=== PATIENT | male | born 1965 | race Caucasian/White ===

== ENCOUNTER 2016-12-03 13:37 | Emergency (ER) | payer SELFPAY ==
[~2016-12-03] VITALS: Ht 177.8 cm; Wt 83.9 kg
[2016-12-03] MEDS ORDERED: PIPERACILLIN/TAZOBACTAM 4.5 GM in IV NORMAL SALINE 50ML 50 ML IV ONE (14:15)
[2016-12-03] MEDS ORDERED: MORPHINE SULFATE 4 MG/ML DISP.SYRIN. IV/SQ PRN (14:15)
[2016-12-03] MEDS ORDERED: VANCOMYCIN 2 GM in IV NORMAL SALINE 500ML 500 ML IV ONE (14:15)
[2016-12-03] MEDS ORDERED: PIP/TAZO PER PHARMACY MC PRN (14:15)
[2016-12-03] MEDS ORDERED: IV NORMAL SALINE 1,000ML 1,000 ML IV SCH (14:30)
[2016-12-03] MEDS ORDERED: fentaNYL PF 100 MCG/2 ML VIAL IV ONE (14:30)
[2016-12-03] MEDS ORDERED: VANCOMYCIN PER PHARMACY MC ONE (14:30)
[2016-12-03 14:31] LABS: BASO # 0.1 x10^3/uL (0.0-0.2); BASO % 1 % (0-3); EOS # 0.3 x10^3/uL (0.0-0.7); EOS % 3 % (0-3); HEMATOCRIT 45.5 % (39.0-53.0); HEMOGLOBIN 16.1 g/dL (13.0-17.5); LYMPH # 2.2 x10^3/uL (1.0-4.8); LYMPH % 20 % (24-48); MEAN CORPUSCULAR HEMOGLOBIN 33 pg (25-35); MEAN CORPUSCULAR HGB CONC 35 g/dL (31-37); MEAN CORPUSCULAR VOLUME 92 fL (79-100); MONO % 9 % (0-9); NEUT # 7.3 x10^3uL (1.8-7.7); NEUT % 67 % (31-73); PLATELET COUNT 191 x10^3/uL (140-400); RED BLOOD COUNT 4.94 x10^6/uL (4.30-5.70); RED CELL DISTRIBUTION WIDTH 13.6 % (11.5-14.5); WHITE BLOOD COUNT 10.8 x10^3/uL (4.0-11.0)
[2016-12-03] MEDS ORDERED: PIPERACILLIN/TAZOBACTAM 4.5 GM VIAL IV ONE (14:33)
[2016-12-03] MEDS ORDERED: IV NORMAL SALINE 50ML 50 ML ONE (14:33)
[2016-12-03 14:42] LABS: C REACTIVE PROTEIN 7.9 mg/L (0-3.3); CALCIUM 8.7 mg/dL (8.5-10.1); CREATININE 0.9 mg/dL (0.7-1.3); GFR 89.7; POTASSIUM 3.8 mmol/L (3.5-5.1)
--- NOTE | 2016-12-03 15:29 | PHYS DOC ---
General Chief Complaint: ABSCESS Stated Complaint: ABSCESS Time Seen by MD: 13:39 Source: patient Exam Limitations: no limitations Problems: History of Present Illness Initial Comments Patient is a 51-year-old male who comes to the ED complaining of testicular mass and pain. Patient states he's had a growth on the right side of his scrotum for the past 3 -5 years. He states it has become tender in the past however the past several days it has grown much larger and hurt so badly has altered the way he has to walk. He denies prior trauma no fever chills sweats or myalgias. He denies pain with intercourse no STI history. [id number] meds not helping patient has MRSA history and thinks this is probable recurrence. Patient has history of addiction and is a heavy smoker. Timing/Duration: getting worse, changing over time Severity: severe Modifying Factors: worse with movement, improves with rest Associated Symptoms: other Allergies: Coded Allergies: No Known Drug Allergies (Unverified , 12/03/16) Past Medical History Medical History: no pertinent history Surgical History: noncontributory Social History Smoker: cigarettes Alcohol: sober Drugs: none Review of Systems Constitutional: denies chills, denies fever, denies malaise Respiratory: denies cough, denies shortness of breath Cardiovascular: denies chest pain, denies palpitations Gastrointestinal: denies diarrhea, denies nausea, denies vomiting Genitourinary: see HPI Musculoskeletal: denies back pain, denies joint swelling, denies neck pain Skin: see HPI Psychiatric/Neurological: denies headache, denies numbness, denies paresthesia Physical Exam General Appearance: WD/WN, no apparent distress Eyes: bilateral eye normal inspection, bilateral eye PERRL, bilateral eye EOMI Ear, Nose, Throat: hearing grossly normal, normal ENT inspection (absent dentition) Neck: non-tender, supple Respiratory: normal breath sounds, no respiratory distress Cardiovascular: normal peripheral pulses, regular rate, rhythm Gastrointestinal: non tender, soft, other (normal circumcised male, there is a 2.5 cm tender hard erythematous nodule at the right lateral scrotum no skin breaks or discharge) Back: no CVA tenderness, no vertebral tenderness Extremities: non-tender, normal inspection Neurologic/Psychiatric: 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 Patient will have a prolonged ED course as scrotal ultrasound has not been completed and still needs to be interpreted. Patient was a prolonged ED course due to laboratory delay. PATIENT: MORIS SAMUEL ACCOUNT: [id number] : 1965 LOCATION: ER AGE: 51 SEX: M EXAM STATUS: REG ER ORD. PHYSICIAN: JUNO KOO DO REASON: tender mass R testicle PROCEDURE: TESTICULAR/SCROTUM Indication tenderness. Reported scrotal abscess. Grayscale color Doppler and spectral imaging was performed and targeted to the scrotum. The right testicle measures 5 x 2.4 x 3.2 cm. There is some suggested increased vascularity seen associated with the testicle. This is nonspecific but could represent a nonspecific inflammatory process. There is no right scrotal mass seen. The epididymis appears normal. There is a small hydrocele. The left testicle appears normal. There is some increased vascularity seen associated with the left testicle as well. The epididymis appears normal. There is a small hydrocele. In the perineum, outside the scrotal sac, is a hypoechoic mass with increased vascularity surrounding the mass measuring approximately 3 cm in greatest dimension. This could represent a hematoma or an abscess. IMPRESSION: No evidence of testicular mass. Small bilateral hydroceles. 3 cm soft tissue mass, in the perineum, outside the scrotum which may represent a hematoma or abscess. DICTATED AND SIGNED BY: DAVON PEÑA MD DATE: 12/03/16 1544 CC: PCP,NO; JUNO KOO DO ~ CRP 7.9 other labs unremarkable. I discussed findings with patient and need for urologic evaluation. He expressed agreement and understanding. Departure Time of Disposition: 16:28 Disposition: 01 HOME, SELF-CARE Diagnosis: uncertain behavior scrotal mass Condition: STABLE Patient Instructions: Scrotal Swelling Additional Instructions: Activity as tolerated. [id number] ibuprofen for baseline discomfort. Prescription: Doxycycline 100 mg, [place] 5 mg quantity 20 Take medications with food to avoid nausea vomiting. He will need to follow-up with a urologist. You may choose to follow-up with Dr. Shaun Jimenez [phone] call today to schedule next available appointment. Return to the ED with new or changing symptoms. JUNO KOO DO Dec 03, 2016 15:29
--- NOTE | 2016-12-03 15:57 | RAD ---
Indication tenderness. Reported scrotal abscess. Grayscale color Doppler and spectral imaging was performed and targeted to the scrotum. The right testicle measures 5 x 2.4 x 3.2 cm. There is some suggested increased vascularity seen associated with the testicle. This is nonspecific but could represent a nonspecific inflammatory process. There is no right scrotal mass seen. The epididymis appears normal. There is a small hydrocele. The left testicle appears normal. There is some increased vascularity seen associated with the left testicle as well. The epididymis appears normal. There is a small hydrocele. In the perineum, outside the scrotal sac, is a hypoechoic mass with increased vascularity surrounding the mass measuring approximately 3 cm in greatest dimension. This could represent a hematoma or an abscess. IMPRESSION: No evidence of testicular mass. Small bilateral hydroceles. 3 cm soft tissue mass, in the perineum, outside the scrotum which may represent a hematoma or abscess.
[2016-12-03 16:01] LABS: SEDIMENTATION RATE 9 (0-15)
[2016-12-03 16:55] VITALS: BP 130/81
[2016-12-03] MEDS ORDERED: methylPREDNISolone SOD SUCC PF 125 MG/2 ML VIAL. IV ONE (17:00)
[2016-12-03] MEDS ORDERED: diphenhydrAMINE 50 MG/ML VIAL IVP ONE (17:00)
== END 2016-12-03 17:12 | disposition home or self-care (01) ==
LOC: ER 13:37
DX: N50.89 Other specified disorders of the male genital organs (principal); F17.210 Nicotine dependence, cigarettes, uncomplicated; N43.3 Hydrocele, unspecified
CPT/HCPCS: 36415; 76870; 80048; 83605; 85027; 85651; 86140; 87040; 96365; 96366; 96367; 96375; 99285; J1200; J2543; J2930; J3010; J3370; J7040; 96361; J7030

== ENCOUNTER 2017-03-03 17:43 | Emergency (ER) | payer SELFPAY ==
[~2017-03-03] VITALS: Ht 177.8 cm; Wt 69.4 kg
[2017-03-03 17:43] VITALS: BP 125/93
[2017-03-03 18:54] LABS: BASO # 0.1 x10^3/uL (0.0-0.2); BASO % 1 % (0-3); EOS # 0.3 x10^3/uL (0.0-0.7); EOS % 3 % (0-3); HEMATOCRIT 45.7 % (39.0-53.0); HEMOGLOBIN 15.5 g/dL (13.0-17.5); LYMPH # 2.7 x10^3/uL (1.0-4.8); LYMPH % 27 % (24-48); MEAN CORPUSCULAR HEMOGLOBIN 32 pg (25-35); MEAN CORPUSCULAR HGB CONC 34 g/dL (31-37); MEAN CORPUSCULAR VOLUME 95 fL (79-100); MONO % 10 % (0-9); NEUT % 60 % (31-73); PLATELET COUNT 194 x10^3/uL (140-400); RED BLOOD COUNT 4.79 x10^6/uL (4.30-5.70); RED CELL DISTRIBUTION WIDTH 13.3 % (11.5-14.5)
[2017-03-03] MEDS ORDERED: IV NORMAL SALINE 1,000ML 1,000 ML IV ONE (19:00)
[2017-03-03 19:06] LABS: ALBUMIN 3.4 g/dL (3.4-5.0); CALCIUM 8.9 mg/dL (8.5-10.1); CREATININE 0.9 mg/dL (0.7-1.3); GFR 89.7; MAGNESIUM 2.2 mg/dL (1.8-2.4); POTASSIUM 4.1 mmol/L (3.5-5.1); TOTAL BILIRUBIN 0.2 mg/dL (0.2-1.0); TOTAL PROTEIN 6.8 g/dL (6.4-8.2)
[2017-03-03 19:14] LABS: AMPHETAMINE/METHAMPHETAMINE NEG (NEG); BARBITURATES NEG (NEG); BENZODIAZEPINES NEG (NEG); CANNABINOIDS NEG (NEG); COCAINE NEG (NEG); METHADONE NEG (NEG); OPIATES NEG (NEG); PHENCYCLIDINE NEG (NEG)
--- NOTE | 2017-03-03 19:19 | ED.ADGEN ---
Past History Past Medical History: Asthma Past Surgical History: Other Alcohol Use: Occasionally Drug Use: None Adult General Chief Complaint Chief Complaint ".. I think I got dehydrated.. my urine is dark.. I just feel washed out..." HPI HPI Patient is a 51 year old male who presents with above hx and complaints. Pt. reports working at [employer], he sweats lot. Reportedly while at the [employer] this week end he was just " washed out". Pt. reports dark urine and feeling dehydrated. Pt. chest pain, fever, chills, or any ill contacts. No history of travel. Patient does smoke. Patient does not follow-up primary care. Review of Systems Review of Systems Constitutional: Denies fever or chills [] Eyes: Denies change in visual acuity, redness, or eye pain [] HENT: Denies nasal congestion or sore throat [] Respiratory: Denies cough or shortness of breath [] Cardiovascular: No additional information not addressed in HPI [] GI: Denies abdominal pain, nausea, vomiting, bloody stools or diarrhea [] : Denies dysuria or hematuria [] Musculoskeletal: Denies back pain or joint pain [] Pt. complains of weakness Integument: Denies rash or skin lesions [] Neurologic: Denies headache, focal weakness or sensory changes [] Endocrine: Denies polyuria or polydipsia [] Family History Family History Noncontributory Current Medications Current Medications Current Medications Medications (Trade) Dose Ordered Sig/Silvia Start Time Stop Time Status Last Admin Dose Admin Sodium Chloride 1,000 ml @ 1,000 mls/hr 1X ONCE 03/03/17 19:00 03/03/17 19:59 03/03/17 18:50 1,000 MLS/HR Allergies Allergies Allergies Coded Allergies Type Severity Reaction Last Updated Verified vancomycin Allergy Intermediate Rash 03/03/17 Yes Physical Exam Physical Exam Constitutional: Patient appears well nourished, no acute distress, non-toxic appearance. [] HENT: Normocephalic, atraumatic, bilateral external ears normal, oropharynx moist, no oral exudates, nose normal. No teeth. Eyes: PERRLA, EOMI, conjunctiva normal, no discharge. [] Neck: Normal range of motion, no tenderness, supple, no stridor. [] Cardiovascular:Heart rate regular rhythm, no murmur [] Lungs & Thorax: Bilateral breath sounds equal at apex with scattered wheezes to auscultation [] Abdomen: Bowel sounds normal, soft, no tenderness, no masses, no pulsatile masses. [] Skin: Warm, dry, no erythema, no rash. [] Back: No tenderness, no CVA tenderness. [] Extremities: No tenderness, no cyanosis, no clubbing, ROM intact, no edema. [] Neurologic: Alert and oriented X 3, normal motor function, normal sensory function, no focal deficits noted. [] Psychologic: Affect normal, judgement normal, mood normal. [] Current Patient Data Vital Signs Vital Signs Date Time Temp Pulse Resp B/P (MAP) Pulse Ox O2 Delivery O2 Flow Rate FiO2 03/03/17 17:43 97.5 52 18 99 Room Air Lab Results Laboratory Tests Test 03/03/17 18:25 03/03/17 18:45 White Blood Count 10.0 x10^3/uL (4.0-11.0) Red Blood Count 4.79 x10^6/uL (4.30-5.70) Hemoglobin 15.5 g/dL (13.0-17.5) Hematocrit 45.7 % (39.0-53.0) Mean Corpuscular Volume 95 fL (79-100) Mean Corpuscular Hemoglobin 32 pg (25-35) Mean Corpuscular Hemoglobin Concent 34 g/dL (31-37) Red Cell Distribution Width 13.3 % (11.5-14.5) Platelet Count 194 x10^3/uL (140-400) Neutrophils (%) (Auto) 60 % (31-73) Lymphocytes (%) (Auto) 27 % (24-48) Monocytes (%) (Auto) 10 % (0-9) H Eosinophils (%) (Auto) 3 % (0-3) Basophils (%) (Auto) 1 % (0-3) Neutrophils # (Auto) 6.0 x10^3uL (1.8-7.7) Lymphocytes # (Auto) 2.7 x10^3/uL (1.0-4.8) Monocytes # (Auto) 1.0 x10^3/uL (0.0-1.1) Eosinophils # (Auto) 0.3 x10^3/uL (0.0-0.7) Basophils # (Auto) 0.1 x10^3/uL (0.0-0.2) Sodium Level 142 mmol/L (136-145) Potassium Level 4.1 mmol/L (3.5-5.1) Chloride Level 107 mmol/L (98-107) Carbon Dioxide Level 29 mmol/L (21-32) Anion Gap 6 (6-14) Blood Urea Nitrogen 17 mg/dL (8-26) Creatinine 0.9 mg/dL (0.7-1.3) Estimated GFR (Cockcroft-Gault) 89.7 BUN/Creatinine Ratio 19 (6-20) Glucose Level 94 mg/dL (70-99) Calcium Level 8.9 mg/dL (8.5-10.1) Magnesium Level 2.2 mg/dL (1.8-2.4) Total Bilirubin 0.2 mg/dL (0.2-1.0) Aspartate Amino Transferase (AST) 15 U/L (15-37) Alanine Aminotransferase (ALT) 18 U/L (16-63) Alkaline Phosphatase 69 U/L (46-116) Troponin I Quantitative < 0.017 ng/mL (0-0.055) Total Protein 6.8 g/dL (6.4-8.2) Albumin 3.4 g/dL (3.4-5.0) Albumin/Globulin Ratio 1.0 (1.0-1.7) Urine Opiates Screen Neg (NEG) Urine Methadone Screen Neg (NEG) Urine Barbiturates Neg (NEG) Urine Phencyclidine Screen Neg (NEG) Urine Amphetamine/Methamphetamine Neg (NEG) Urine Benzodiazepines Screen Neg (NEG) Urine Cocaine Screen Neg (NEG) Urine Cannabinoids Screen Neg (NEG) Urine Ethyl Alcohol Neg (NEG) EKG EKG My interpretation of EKG shows sinus kathrin at 47, J point- no contralateral. No acute morphology[] Radiology/Procedures Radiology/Procedures [] Course & Med Decision Making Course & Med Decision Making Pertinent Labs and Imaging studies reviewed. (See chart for details) Pt. to take daily Aspirin, push fluids, follow up with primary care. Stop smoking. [] Final Impression Final Impression 1. Weakness 2. Dehydration- hx[] 3. Hx. of possible Heat Exhaustion. Problems: Dragon Disclaimer Dragon Disclaimer This electronic medical record was generated, in whole or in part, using a voice recognition dictation system. PONCHO RAMACHANDRAN MD Mar 03, 2017 19:19
--- NOTE | 2017-03-04 06:43 | EKG ---
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
== END 2017-03-03 19:20 | disposition home or self-care (01) ==
LOC: ER 17:50
DX: R53.1 Weakness (principal); R00.1 Bradycardia, unspecified; J45.909 Unspecified asthma, uncomplicated; Z88.1 Allergy status to other antibiotic agents
CPT/HCPCS: 36415; 80053; 80307; 83735; 84484; 85025; 93005; 99285; G0479; J7030

== ENCOUNTER → 2017-03-12 | Outpatient (CLI) | payer OTHER ==
[2017-03-03 17:43] VITALS: BP 125/93
--- NOTE | 2017-03-12 16:11 | RAD ---
Chest, 2 views, 03/12/2017: History: Cough, bronchitis, dizziness The heart size and pulmonary vascularity are normal. There is a small left parahilar lung nodule. No pulmonary consolidation is seen. There is no evidence of pleural fluid. IMPRESSION: 1. Small left lung nodule which may be a granuloma. Comparison with previous chest radiographs if available would be most helpful in establishing stability. If none are available, radiographic follow-up or CT scanning is suggested. 2. No acute infiltrates.
== END | disposition home or self-care (01) ==
LOC: RAD 15:20
PROVIDERS: ATTEND Nurse Practitioner
DX: J41.1 Mucopurulent chronic bronchitis (principal); R91.1 Solitary pulmonary nodule
CPT/HCPCS: 71020

== ENCOUNTER → 2017-04-03 | Outpatient (CLI) | payer OTHER ==
--- NOTE | 2017-04-03 17:55 | RAD ---
CT of the chest without contrast, 04/03/2017: History: Lung nodule, weight loss, smoking history Noncontrast scans were obtained with multiplanar reconstructions produced. There is an 11 mm calcified nodule in the left lower lobe which corresponds to the opacity seen on the 03/12/2000 chest radiograph. This is compatible with a benign granuloma. There is a smaller 2 mm adjacent density also compatible with a granuloma. There are additional calcified granulomata in the right upper lobe inferiorly and anteriorly. There is a small subpleural calcification in the anteromedial aspect of the left upper lobe. There are emphysematous changes in the lungs with multiple subpleural blebs, particularly in the apices. There is adjacent pleural thickening compatible with scarring. There is a 7 mm groundglass opacity in the anterior aspect of the left upper lobe as seen on image 72 of series #2. It demonstrates a tiny punctate area of medium density centrally. A 7 mm semisolid opacity is seen medially in the right upper lobe on axial image 82 of series #2 and coronal image 49 of series #3. Several other smaller groundglass opacities are seen in the right upper lobe, such as on images 81, 91 and 102 of series #2. No mediastinal adenopathy is seen. The thoracic aorta is not dilated. IMPRESSION: 1. Emphysema with pleural-parenchymal scarring. 2. Calcified granulomata in both lungs. 3. Several additional tiny groundglass and semisolid opacities as described above. These findings are nonspecific and may be postinflammatory. Atypical adenomatous hyperplasia or early adenocarcinoma cannot be excluded. CT follow-up beginning in 3-6 months is suggested. PQRS Compliance Statement: One or more of the following individualized dose reduction techniques were utilized for this examination: 1. Automated exposure control 2. Adjustment of the mA and/or kV according to patient size 3. Use of iterative reconstruction technique
== END | disposition home or self-care (01) ==
LOC: CT 16:17
PROVIDERS: ATTEND Nurse Practitioner
DX: J43.9 Emphysema, unspecified (principal); J84.10 Pulmonary fibrosis, unspecified; R91.1 Solitary pulmonary nodule; R63.4 Abnormal weight loss; R05 Cough
CPT/HCPCS: 71250

== ENCOUNTER → 2017-09-18 | Outpatient (CLI) | payer OTHER ==
--- NOTE | 2017-09-18 11:20 | RAD ---
CT chest without contrast 09/18/2017 Clinical indication: Follow-up lung nodule. COMPARISON: CT chest 04/03/2017 TECHNIQUE: Multiple CT images of the chest were obtained without contrast according to standard protocol. *One or more of the following individualized dose reduction techniques were utilized for this examination: 1. Automated exposure control. 2. Adjustment of the mA and/or kV according to patient size. 3. Use of iterative reconstruction technique. FINDINGS: Heart size is normal without significant pericardial effusion. No axillary, mediastinal or obvious hilar lymphadenopathy. The central airways are patent. There is mild upper lobe paraseptal emphysema. Near complete resolution in ill-defined nodular opacities throughout both lungs. There is stable anterior left upper lobe perifissural triangular nodule series 2/image 182 consistent with intrapulmonic lymph node. There is minimal linear atelectasis or scarring in the posterior basilar right lower lobe. There is a calcified granuloma in the central left lower lobe. There is a stable 0.3 cm noncalcified nodule in the anterior left upper lobe series 2/image 170. There is a stable 0.3 cm noncalcified nodule in the right upper lobe series 2/image 143. There is a stable 0.3 cm noncalcified nodule in the right middle lobe series 2/image 202. Linear triangular perifacial nodule in the right lower lobe series 2/image 200 is considered a benign intrapulmonic lymph node. No new or enlarging noncalcified pulmonary nodules. There are multiple upper lobe predominant groundglass nodules, many of which are in a centrilobular distribution. No pleural effusion or pneumothorax. There are no destructive osseous lesions. Limited images of the upper abdomen: Grossly unremarkable. IMPRESSION: 1. Decrease and resolution in multiple upper lobe predominant nodular opacities. 2. There are several stable bilateral subcentimeter noncalcified pulmonary nodules, indeterminate. Follow-up CT chest in 6 months is recommended to assess for stability. 3. Mild emphysema. 4. Upper lobe predominant groundglass opacities, many in a centrilobular distribution, likely related to respiratory bronchiolitis. Electronically signed by: Kuldip Vazquez MD (09/18/2017 11:17 AM) [id number]
== END | disposition home or self-care (01) ==
LOC: CT 09:48
PROVIDERS: ATTEND Nurse Practitioner
DX: J43.9 Emphysema, unspecified (principal); R91.8 Other nonspecific abnormal finding of lung field; Z87.891 Personal history of nicotine dependence
CPT/HCPCS: 71250

== ENCOUNTER 2020-12-10 19:05 | Emergency (ER) | payer SELFPAY ==
[~2020-12-10] VITALS: Ht 177.8 cm; Wt 81.8 kg
--- NOTE | 2020-12-10 19:12 | PHYS DOC ---
Past History Past Medical History: Asthma Past Surgical History: Other Alcohol Use: Occasionally Drug Use: None Adult General HPI HPI Patient is a 55-year-old male who presents with a chief complaint of lower abdominal pain, intermittent, 7 out of 10, dull and achy in nature over the last 2 weeks. Denies any recent traumas, travel, ill contacts, fevers, rash, chest pain, shortness of breath, other abdominal pain, dysuria, hematuria, blood in the stool or diarrhea. Denies any history of abdominal surgeries or hernias. States he had one episode of nonbloody nonbilious emesis 2 days ago but has not since then. States that urine and stool are otherwise normal. States he is eating and drinking otherwise normal for him. Denies any change in weight. Denies any alcohol or drug use. Review of Systems Review of Systems Review of systems otherwise unremarkable except noted in HPI. Allergies Allergies Allergies Coded Allergies Type Severity Reaction Last Updated Verified vancomycin Allergy Intermediate Rash 03/03/17 Yes Physical Exam Physical Exam Constitutional: Well developed, well nourished, no acute distress, non-toxic appearance. [] HENT: Normocephalic, atraumatic, bilateral external ears normal, oropharynx moist, no oral exudates, nose normal. [] Eyes: conjunctiva normal, no discharge. [] Neck: Normal range of motion, no tenderness, supple, no stridor. [] Cardiovascular:Heart rate regular rhythm, no murmur [] Lungs & Thorax: Bilateral breath sounds clear to auscultation [] Abdomen: Bowel sounds normal, soft, mild tenderness just inferior and to the right of the umbilicus, no masses, no pulsatile masses. [] Skin: Warm, dry, no erythema, no rash. [] Back: no CVA tenderness. [] Extremities: No tenderness, no cyanosis, no clubbing, ROM intact, no edema. [] Neurologic: Alert and oriented X 3, normal motor function, normal sensory function, no focal deficits noted. [] Psychologic: Affect normal, judgement normal, mood normal. [] EKG EKG [] Radiology/Procedures Radiology/Procedures [] Exam: CT of abdomen and pelvis with contrast INDICATION: Right lower quadrant, periumbilical pain TECHNIQUE: Sequential axial images through the abdomen and pelvis obtained following the administration of 74 mL of Isovue-370 IV contrast. Sagittal and coronal reformatted images were reconstructed from the axial data and reviewed. Exposure: One or more of the following in the visualized dose reduction techniques were utilized for this examination: 1. Automated exposure control 2. Adjustment of the MA and/or KV according to patient size 3. Use of iterative of reconstructive technique Comparisons: None FINDINGS: Heart size is normal. No pericardial effusion. Visualized lung bases are clear. No pleural effusion. Liver, spleen, pancreas, gallbladder and adrenals are unremarkable. No perinephric inflammation or hydronephrosis. No renal or ureteral calculi are identified. Bladder is partially distended and not well evaluated. Prostate is not enlarged. Diverticulosis noted at the sigmoid colon. Mild wall thickening at the sigmoid colon. Remainder of the large and small bowel are unremarkable. Appendix is normal. No free intra-abdominal air or fluid. No obstruction. Abdominal aorta has a normal course and caliber. Abdominal vasculature is patent. No enlarged intra-abdominal lymph nodes are identified. No suspicious osseous lesions or acute fractures. IMPRESSION: 1. Wall thickening at the sigmoid colon may relate to mild colitis. Correlate with symptomatology. 2. Normal appendix. Electronically signed by: Stefan Felix MD (12/10/2020 7:53 PM) [facility] Heart Score C/O Chest Pain: No Risk Factors: Risk Factors: DM, Current or recent (<one month) smoker, HTN, HLP, family history of CAD, obesity. Risk Scores: Risk Factors: DM, Current or recent (<one month) smoker, HTN, HLP, family history of CAD, obesity. Course & Med Decision Making Course & Med Decision Making Patient is a 55-year-old male who presents with lower abdominal pain, intermittently for the last couple of weeks Vital signs not concerning. Physical exam noted above. Patient with no need for nausea or pain medicine at this time. Laboratory analysis not concerning. CT notable for possible mild colitis. Given patient's history of IBS could be a mild exacerbation. Patient with no fever, no tachycardia, no white count and no blood in the stool so antibiotics not indicated at this time. Discussed all findings with patient and advised pain and nausea medicine over the next couple of days as well as a light clear diet. Advised to call primary care physician first thing Saturday morning to set up a follow-up visit. Gave strict return precautions to the ED. Patient grateful, verbalized understanding and agreed with plan of discharge. [] Dragon Disclaimer Dragon Disclaimer This electronic medical record was generated, in whole or in part, using a voice recognition dictation system. Departure Departure: Impression: Primary Impression: Abdominal pain Additional Impression: Colitis Disposition: HOME / SELF CARE / HOMELESS Condition: GOOD Referrals: VENKAT CALDWELL (PCP) Patient Instructions: Abdominal Pain (Nonspecific) Additional Instructions: Thank you for coming into the emergency department today and allowing us to take care of you. Please read all the attached information very carefully. As discussed it appears that you have a mild colitis or inflammation of your colon based on your CT scan. Your laboratory analysis was otherwise normal as were your vital signs. Over the next couple of days take your prescription nausea medicine as needed and prescription pain medicine as needed. As discussed please adjust your diet to a light clear intake including things such as Gatorade/Pedialyte, chicken soup and saltine crackers with nothing heavy and avoid dairy products as well. Please call your primary care physician first thing Saturday to discuss your ED visit and set up a follow-up as soon as possible. Please come back to the emergency department immediately with new or concerning symptoms as discussed. Scripts Hydrocodone Bit/Acetaminophen (HYDROCODONE-APAP 5-325 ) 1 Each Tablet 1 TAB PO TID PRN for PAIN for 5 Days, #15 TAB 0 Refills Prov: TIFFANIE MENJIVAR MD 12/10/20 Ondansetron Hcl (ZOFRAN) 4 Mg Tablet 1 TAB PO PRN Q6HRS PRN for NAUSEA, #20 TAB Prov: TIFFANIE MENJIVAR MD 12/10/20 Problem Qualifiers TIFFANIE MENJIVAR MD Dec 10, 2020 19:12
[2020-12-10] MEDS ORDERED: CONTRAST GIVEN. MC PRN (19:30)
[2020-12-10] MEDS ORDERED: IOHEXOL 300 MG/ML 75 ML VIAL. IV ONE (19:30)
[2020-12-10 19:44] LABS: BASO # 0.1 x10^3/uL (0.0-0.2); BASO % 1 % (0-3); EOS # 0.4 x10^3/uL (0.0-0.7); EOS % 4 % (0-3); HEMATOCRIT 46.5 % (39.0-53.0); LYMPH # 2.8 x10^3/uL (1.0-4.8); LYMPH % 26 % (24-48); MEAN CORPUSCULAR HEMOGLOBIN 31 pg (25-35); MEAN CORPUSCULAR HGB CONC 35 g/dL (31-37); MEAN CORPUSCULAR VOLUME 89 fL (79-100); MONO # 1.2 x10^3/uL (0.0-1.1); MONO % 11 % (0-9); NEUT # 6.4 x10^3uL (1.8-7.7); NEUT % 59 % (31-73); PLATELET COUNT 238 x10^3/uL (140-400); RED BLOOD COUNT 5.21 x10^6/uL (4.30-5.70); RED CELL DISTRIBUTION WIDTH 13.6 % (11.5-14.5); WHITE BLOOD COUNT 10.8 x10^3/uL (4.0-11.0)
[2020-12-10 19:46] LABS: CALCIUM 9.1 mg/dL (8.5-10.1); CREATININE 1.2 mg/dL (0.7-1.3); GFR 63.3
[2020-12-10 19:49] LABS: AMORPHOUS SEDIMENT,UR PRESENT /HPF; BACTERIA,URINE FEW /HPF (0-FEW); BILIRUBIN,URINE NEG (NEG); CLARITY,URINE HAZY; COLOR,URINE YELLOW; GLUCOSE,URINE NEG (NEG); NITRITE,URINE NEG (NEG); RBC,URINE 0 /HPF (0-2); UROBILINOGEN,URINE 0.2 mg/dL (0.2 mg/dL); WBC,URINE 0 /HPF (0-4)
[2020-12-10 19:52] LABS: ALBUMIN 3.6 g/dL (3.4-5.0); ALBUMIN/GLOBULIN RATIO 0.8 (1.0-1.7); TOTAL BILIRUBIN 0.2 mg/dL (0.2-1.0)
--- NOTE | 2020-12-10 19:56 | RAD ---
Exam: CT of abdomen and pelvis with contrast INDICATION: Right lower quadrant, periumbilical pain TECHNIQUE: Sequential axial images through the abdomen and pelvis obtained following the administrati on of 74 mL of Isovue-370 IV contrast. Sagittal and coronal reformatted images were reconstructed fro m the axial data and reviewed. Exposure: One or more of the following in the visualized dose reduction techniques were utilized for this examination: 1. Automated exposure control 2. Adjustment of the MA and/or KV according to patient size 3. Use of iterative of reconstructive technique Comparisons: None FINDINGS: Heart size is normal. No pericardial effusion. Visualized lung bases are clear. No pleural effusion. Liver, spleen, pancreas, gallbladder and adrenals are unremarkable. No perinephric inflammation or hydronephrosis. No renal or ureteral calculi are identified. Bladder is partially distended and not well evaluated. Prostate is not enlarged. Diverticulosis noted at the sigmoid colon. Mild wall thickening at the sigmoid colon. Remainder of th e large and small bowel are unremarkable. Appendix is normal. No free intra-abdominal air or fluid. N o obstruction. Abdominal aorta has a normal course and caliber. Abdominal vasculature is patent. No enlarged intra-abdominal lymph nodes are identified. No suspicious osseous lesions or acute fractures. IMPRESSION: 1. Wall thickening at the sigmoid colon may relate to mild colitis. Correlate with symptomatology. 2. Normal appendix. Electronically signed by: Stefan Felix MD (12/10/2020 7:53 PM) [facility]
[2020-12-10] MEDS ORDERED: HYDR-2155 PO (20:10)
[2020-12-10] MEDS ORDERED: ONDA4TAB7 PO (20:10)
[2020-12-10 20:25] VITALS: BP 121/61
[2020-12-10] MEDS ORDERED: ONDANSETRON ODT 4 MG TAB.RAPDIS PO ONE (20:30)
[2020-12-10] MEDS ORDERED: HYDROcodone/APAP 5/325MG 1 TAB TABLET PO ONE (20:30)
== END 2020-12-10 20:32 | disposition home or self-care (01) ==
LOC: ER 19:05
DX: K52.9 Noninfective gastroenteritis and colitis, unspecified (principal); J45.909 Unspecified asthma, uncomplicated; Z88.1 Allergy status to other antibiotic agents
CPT/HCPCS: 36415; 74177; 80053; 81001; 83690; 85025; 99285; Q0162; Q9967